=== PATIENT | male | born 1945 | race Caucasian/White ===

== ENCOUNTER → 2017-10-06 | Outpatient (CLI) | payer MEDICARE | END | disposition home or self-care (01) | LOC: ROC 10-05 11:10 | PROVIDERS: ATTEND Radiology Radiation Oncology | DX: C44.42 Squamous cell carcinoma of skin of scalp and neck (principal); F32.9 Major depressive disorder, single episode, unspecified; F41.9 Anxiety disorder, unspecified; E11.9 Type 2 diabetes mellitus without complications; J43.9 Emphysema, unspecified | CPT/HCPCS: G0463 ==

== ENCOUNTER → 2017-12-21 | Outpatient (CLI) | payer MEDICARE | END | disposition home or self-care (01) | LOC: ROC 14:08 | PROVIDERS: ATTEND Radiology Radiation Oncology | DX: C44.42 Squamous cell carcinoma of skin of scalp and neck (principal); C79.51 Secondary malignant neoplasm of bone; E11.9 Type 2 diabetes mellitus without complications; J44.1 Chronic obstructive pulmonary disease with (acute) exacerbation | CPT/HCPCS: G0463 ==

== ENCOUNTER → 2018-04-23 | Outpatient (CLI) | payer MEDICARE | END | disposition home or self-care (01) | LOC: ROC 09:07 | PROVIDERS: ATTEND Radiology Radiation Oncology | DX: Z08 Encounter for follow-up examination after completed treatment for malignant neoplasm (principal); C44.42 Squamous cell carcinoma of skin of scalp and neck | CPT/HCPCS: G0463 ==

== ENCOUNTER → 2018-10-18 | Outpatient (CLI) | payer MEDICARE | END | disposition home or self-care (01) | LOC: ROC 08:56 | PROVIDERS: ATTEND Radiology Radiation Oncology | DX: C44.42 Squamous cell carcinoma of skin of scalp and neck (principal); J44.9 Chronic obstructive pulmonary disease, unspecified; L92.9 Granulomatous disorder of the skin and subcutaneous tissue, unspecified | CPT/HCPCS: G0463 ==